=== PATIENT | male | born 1960 | race Caucasian/White ===

== ENCOUNTER → 2016-11-05 | Outpatient (CLI) | payer OTHER ==
[~2016-11-05] MED LIST: ADVAIR 250/501 DISK IH; ALPRAZOLAM0.25 M2 PO; AMOX TR-K CLV1 EAC4 PO; BACLOFEN10 MG PO; BENZONATATE200 MG PO; CETIRIZINE HCL10 M2 PO; CILOSTAZOL50 MG PO; CLOBETASOL PROP60 GM TP; DEXAMETHASONE4 MG PO; DOCUSATE SODIU100 MG PO; ENALAPRIL MALEAT5 MG PO; FENOFIBRATE54 M1 PO; FLONASE ALLERG9.9 ML BOTH NARES; FUROSEMIDE20 MG PO; HYDROMET PO; LYRICA100 MG PO; NICOTINE PATCH1 EAC2 TD; OXYCODONE-APAP1 EAC6 PO; OXYCODONE-APAP1 EACH PO; PANTOPRAZOLE SO40 MG PO; PENTOXIFYLLINE400 MG PO; PRAVACHOL10 MG PO; RELAFEN750 MG PO; TRAZODONE HCL50 MG PO; VENTOLIN HFA18 GM IH; WELLBUTRIN SR150 MG PO
== END | disposition home or self-care (01) ==
LOC: NUC 10:24
DX: R93.7 Abnormal findings on diagnostic imaging of other parts of musculoskeletal system (principal); Z96.641 Presence of right artificial hip joint
CPT/HCPCS: 78306; A9503

== ENCOUNTER → 2016-11-12 | Outpatient (CLI) | payer OTHER ==
[~2016-11-12] VITALS: Ht 167.6 cm; Wt 64.8 kg
[2016-11-12 10:43] LABS: MCH 26.7 PG (29.0-34.0); MEAN PLAT.VOLUME 8.5 uM^3 (9.0-12.4); PLATELET COUNT 223 K/uL (156-360); RBC DIS.WIDTH-CV 13.2 % (11.8-14.6); RBC DIS.WIDTH-SD 38.9 % (39-53); RED BLOOD COUNT 4.57 M/uL (4.00-5.50); WHITE BLOOD COUNT 6.6 K/uL (4.1-10.2)
[2016-11-12 10:56] LABS: INTER. NORMALIZED RATIO 1.3; PROTHROMBIN TIME 14.4 SEC (10.2-12.9)
[2016-11-12 10:59] LABS: PTT 30.5 SEC (25-37)
== END | disposition home or self-care (01) ==
LOC: AMB 10-31 14:30
PROVIDERS: Internal Medicine Pulmonary Disease
DX: C34.81 Malignant neoplasm of overlapping sites of right bronchus and lung (principal); J44.9 Chronic obstructive pulmonary disease, unspecified; F17.210 Nicotine dependence, cigarettes, uncomplicated; Z80.1 Family history of malignant neoplasm of trachea, bronchus and lung; Z77.090 Contact with and (suspected) exposure to asbestos; Z57.5 Occupational exposure to toxic agents in other industries; Z82.49 Family history of ischemic heart disease and other diseases of the circulatory system
CPT/HCPCS: 71010; 85027; 85610; 85730; 88108; 88173; 88305; 88341 TC; 88342 TC; J0171; J0461; J2175; J2250; J2550; J3010

== ENCOUNTER 2017-01-07 10:26 | Emergency (ER) | payer OTHER ==
[~2017-01-07] VITALS: Ht 167.6 cm; Wt 79.3 kg
[~2017-01-07 10:26] MED LIST changes: +DIGOXIN250 MCG PO; +DUONEB 2.5-0.5 M3 ML AEROSOL; +LEVAQUIN500 MG PO; +METOPROLOL TAR100 MG PO; +MS CONTIN,ORAMO15 M1 PO; +SYMBICORT60 INHALAT IH
[2017-01-07 11:49] LABS: EOSINOPHIL (%) 0 % (0-5); HEMATOCRIT 38.1 % (38.0-50.0); IMMATURE GRANULOCYTE (%) 0.9 % (0.0-0.7); IMMATURE GRANULOCYTE COUNT 0.1 K/uL; INSTRUMENT ABS NEUTROPHIL CT 9.6 K/uL; LYMPHOCYTE COUNT 0.4 K/uL (1.0-2.8); MCH 25.7 PG (29.0-34.0); MCHC 31.8 G/DL (30.0-36.0); MCV 80.9 FL (86-99); MEAN PLAT.VOLUME 9.1 uM^3 (9.0-12.4); MONOCYTE (%) 1.3 % (3-12); MONOCYTE COUNT 0.1 K/uL (0-0.8); NEUTROPHIL (%) 93.9 % (45-76); NEUTROPHIL COUNT 9.6 K/uL (1.8-6.4); PLATELET COUNT 234 K/uL (156-360); RBC DIS.WIDTH-CV 16.5 % (11.8-14.6); RBC DIS.WIDTH-SD 47.8 % (39-53); RED BLOOD COUNT 4.71 M/uL (4.00-5.50); WHITE BLOOD COUNT 10.2 K/uL (4.1-10.2)
[2017-01-07 12:05] LABS: CHLORIDE 100 mEq/L (99-109); POTASSIUM 4.6 mEq/L (3.7-5.4); SODIUM 136 mEq/L (136-147)
[2017-01-07 12:08] LABS: GLUCOSE 168 mg/dL (70-99)
[2017-01-07 12:09] LABS: ANION GAP 9 MEQ/L (2-14); TROP-I INTERPRETATION NEGATIVE; TROPONIN-I < 0.01 ng/mL (0.0-0.30)
[2017-01-07 12:10] LABS: TOTAL BILIRUBIN 0.6 mg/dL (0.0-1.0)
[2017-01-07 12:11] LABS: ALKALINE PHOSPHATASE 120 IU/L (3-129); GFR ESTIMATE (CALCULATED) > 59 mL/min/
[2017-01-07 12:12] LABS: UREA NITROGEN (BUN) 18 mg/dL (9-23)
[2017-01-07 13:17] VITALS: BP 142/74
== END 2017-01-07 13:19 | disposition home or self-care (01) ==
LOC: EME 10:26
PROVIDERS: Emergency Medicine
DX: T78.40XA Allergy, unspecified, initial encounter (principal); R06.03 Acute respiratory distress; Z85.118 Personal history of other malignant neoplasm of bronchus and lung; L40.9 Psoriasis, unspecified; I73.9 Peripheral vascular disease, unspecified; F41.9 Anxiety disorder, unspecified; E78.5 Hyperlipidemia, unspecified; F17.200 Nicotine dependence, unspecified, uncomplicated; Z88.5 Allergy status to narcotic agent; Z88.8 Allergy status to other drugs, medicaments and biological substances
CPT/HCPCS: 71010; 80053; 84484; 85025; 93005; 99281; 99285

== ENCOUNTER 2017-01-13 01:37 | Inpatient (IN) | payer OTHER ==
[~2017-01-13] VITALS: Ht 167.6 cm; Wt 76.5 kg
[~2017-01-13 01:37] MED LIST changes: -BENZONATATE200 MG PO; +LASIX40 MG PO; +TESSALON200 MG PO
[2017-01-13 02:12] LABS: HEMATOCRIT 35.7 % (38.0-50.0); MCH 26.4 PG (29.0-34.0); MCHC 32.8 G/DL (30.0-36.0); MCV 80.4 FL (86-99); PLATELET COUNT 219 K/uL (156-360); RBC DIS.WIDTH-CV 16.7 % (11.8-14.6); RBC DIS.WIDTH-SD 48.1 % (39-53); RED BLOOD COUNT 4.44 M/uL (4.00-5.50); WHITE BLOOD COUNT 13.2 K/uL (4.1-10.2)
[2017-01-13 02:22] LABS: INTER. NORMALIZED RATIO 1.4; PROTHROMBIN TIME 15.5 SEC (10.2-12.9)
[2017-01-13 02:24] LABS: CHLORIDE 94 mEq/L (99-109); SODIUM 132 mEq/L (136-147)
[2017-01-13 02:26] LABS: GLUCOSE 134 mg/dL (70-99)
[2017-01-13 02:27] LABS: ANION GAP 12 MEQ/L (2-14)
[2017-01-13 02:30] LABS: GFR ESTIMATE (CALCULATED) > 59 mL/min/; UREA NITROGEN (BUN) 15 mg/dL (9-23)
[2017-01-13 02:48] LABS: TROP-I INTERPRETATION NEGATIVE; TROPONIN-I < 0.01 ng/mL (0.0-0.30)
[2017-01-13 08:22] VITALS: BP 115/73
[2017-01-13 10:33] LABS: TROP-I INTERPRETATION NEGATIVE; TROPONIN-I < 0.01 ng/mL (0.0-0.30)
[2017-01-13 11:44] VITALS: BP 132/75
[2017-01-13 14:55] LABS: TROP-I INTERPRETATION NEGATIVE; TROPONIN-I 0.01 ng/mL (0.0-0.30)
[2017-01-13 15:02] VITALS: BP 119/67
[2017-01-13] MEDS ORDERED: KADIAN30 MG PO (18:33)
[2017-01-13] MEDS ORDERED: REGLAN5 MG PO (18:43)
[2017-01-13] MEDS ORDERED: BACLOFEN10 MG PO (18:43)
[2017-01-13 20:08] VITALS: BP 120/65
[2017-01-13 23:36] VITALS: BP 141/64
[2017-01-14] VITALS (7 sets, daily range): BP systolic 122–153; BP diastolic 65–96
[2017-01-14 07:03] LABS: EOSINOPHIL (%) 0 % (0-5); HEMATOCRIT 37.7 % (38.0-50.0); IMMATURE GRANULOCYTE (%) 1.5 % (0.0-0.7); IMMATURE GRANULOCYTE COUNT 0.1 K/uL; INSTRUMENT ABS NEUTROPHIL CT 6.9 K/uL; LYMPHOCYTE COUNT 0.4 K/uL (1.0-2.8); MCH 25.3 PG (29.0-34.0); MCHC 31.3 G/DL (30.0-36.0); MCV 80.7 FL (86-99); MEAN PLAT.VOLUME 8.7 uM^3 (9.0-12.4); MONOCYTE COUNT 0.2 K/uL (0-0.8); NEUTROPHIL (%) 91.5 % (45-76); NEUTROPHIL COUNT 6.9 K/uL (1.8-6.4); PLATELET COUNT 199 K/uL (156-360); RBC DIS.WIDTH-CV 16.6 % (11.8-14.6); RBC DIS.WIDTH-SD 48.8 % (39-53); RED BLOOD COUNT 4.67 M/uL (4.00-5.50); WHITE BLOOD COUNT 7.5 K/uL (4.1-10.2)
[2017-01-14 07:20] LABS: INTER. NORMALIZED RATIO 1.4; PROTHROMBIN TIME 15.8 SEC (10.2-12.9)
[2017-01-14 07:26] LABS: ALKALINE PHOSPHATASE 116 IU/L (3-129); ANION GAP 12 MEQ/L (2-14); CHLORIDE 99 MEQ/L (99-109); GFR ESTIMATE (CALCULATED) > 59 mL/min/; GLUCOSE 144 mg/dL (70-99); POTASSIUM 4.4 MEQ/L (3.7-5.4); SAMPLE HEMOLYSIS CHECK 0; SAMPLE ICTERIC CHECK 0; SAMPLE LIPEMIA CHECK 0; TOTAL BILIRUBIN 0.5 MG/DL (0.0-1.0); UREA NITROGEN (BUN) 14 mg/dL (9-23)
[2017-01-14 07:28] LABS: SODIUM 139 MEQ/L (136-147)
[2017-01-15] VITALS (7 sets, daily range): BP systolic 126–161; BP diastolic 73–93
[2017-01-15 06:05] LABS: EOSINOPHIL (%) 0.1 % (0-5); HEMATOCRIT 35.9 % (38.0-50.0); IMMATURE GRANULOCYTE (%) 1.1 % (0.0-0.7); IMMATURE GRANULOCYTE COUNT 0.1 K/uL; INSTRUMENT ABS NEUTROPHIL CT 10.3 K/uL; LYMPHOCYTE COUNT 0.5 K/uL (1.0-2.8); MCH 25.7 PG (29.0-34.0); MCV 80.1 FL (86-99); MEAN PLAT.VOLUME 8.8 uM^3 (9.0-12.4); MONOCYTE (%) 4.2 % (3-12); MONOCYTE COUNT 0.5 K/uL (0-0.8); NEUTROPHIL (%) 90.5 % (45-76); NEUTROPHIL COUNT 10.3 K/uL (1.8-6.4); PLATELET COUNT 228 K/uL (156-360); RBC DIS.WIDTH-CV 17.1 % (11.8-14.6); RBC DIS.WIDTH-SD 49.5 % (39-53); RED BLOOD COUNT 4.48 M/uL (4.00-5.50); WHITE BLOOD COUNT 11.3 K/uL (4.1-10.2)
[2017-01-15 06:28] LABS: ANION GAP 12 MEQ/L (2-14); CHLORIDE 100 MEQ/L (99-109); GFR ESTIMATE (CALCULATED) > 59 mL/min/; GLUCOSE 164 mg/dL (70-99); POTASSIUM 4.1 MEQ/L (3.7-5.4); SAMPLE HEMOLYSIS CHECK 0; SAMPLE ICTERIC CHECK 0; SAMPLE LIPEMIA CHECK 0; SODIUM 138 MEQ/L (136-147); UREA NITROGEN (BUN) 20 mg/dL (9-23)
[2017-01-16 05:06] VITALS: BP 137/69
[2017-01-16 07:49] VITALS: BP 155/88
[2017-01-16 11:36] VITALS: BP 151/90
[2017-01-16 15:32] VITALS: BP 148/72
[2017-01-16 19:49] VITALS: BP 166/72
[2017-01-17 03:56] VITALS: BP 129/70
[2017-01-17 07:55] VITALS: BP 138/77
[2017-01-17 09:52] LABS: HEMATOCRIT 36.4 % (38.0-50.0); MCH 25.5 PG (29.0-34.0); MCHC 31.6 G/DL (30.0-36.0); MCV 80.7 FL (86-99); MEAN PLAT.VOLUME 8.5 uM^3 (9.0-12.4); PLATELET COUNT 201 K/uL (156-360); RBC DIS.WIDTH-CV 17.4 % (11.8-14.6); RBC DIS.WIDTH-SD 51.2 % (39-53); RED BLOOD COUNT 4.51 M/uL (4.00-5.50)
[2017-01-17 10:14] LABS: ANION GAP 9 MEQ/L (2-14); CHLORIDE 101 MEQ/L (99-109); GFR ESTIMATE (CALCULATED) > 59 mL/min/; POTASSIUM 4.5 MEQ/L (3.7-5.4); SAMPLE HEMOLYSIS CHECK 0; SAMPLE ICTERIC CHECK 0; SAMPLE LIPEMIA CHECK 0; SODIUM 138 MEQ/L (136-147); UREA NITROGEN (BUN) 30 mg/dL (9-23)
[2017-01-17 10:15] LABS: GLUCOSE 112 mg/dL (70-99)
[2017-01-17 11:18] VITALS: BP 138/76
[2017-01-17 15:57] VITALS: BP 131/67
[2017-01-17 20:00] VITALS: BP 129/76
[2017-01-17 23:51] VITALS: BP 158/83
[2017-01-18 03:49] VITALS: BP 172/76
[2017-01-18 08:07] VITALS: BP 141/70
[2017-01-18 11:33] VITALS: BP 142/85
[2017-01-18 15:08] VITALS: BP 150/73
[2017-01-18 15:34] LABS: TYPE OF FLUID PLEURAL
[2017-01-18 16:12] LABS: BODY FLUID EOSINOPHILS 0 % (0-25); BODY FLUID RBC'S < 1000 /MM^3 (0-100); BODY FLUID WBC'S 59 /MM^3 (0-500); MONONUCLEAR WBC'S 86 %; POLYNUCLEAR WBC'S 14 % (0-25)
[2017-01-18 16:14] LABS: BODY FLUID LDH 79 IU/L
[2017-01-18 19:49] VITALS: BP 139/72
[2017-01-18 23:45] VITALS: BP 162/89
[2017-01-19 04:13] VITALS: BP 159/80
[2017-01-19 07:27] VITALS: BP 130/69
[2017-01-19 10:05] LABS: MCH 25.6 PG (29.0-34.0); MCHC 32.4 G/DL (30.0-36.0); MCV 79.2 FL (86-99); MEAN PLAT.VOLUME 8.6 uM^3 (9.0-12.4); PLATELET COUNT 229 K/uL (156-360); RBC DIS.WIDTH-SD 48.4 % (39-53); WHITE BLOOD COUNT 13.5 K/uL (4.1-10.2)
[2017-01-19 10:28] LABS: ANION GAP 11 MEQ/L (2-14); CHLORIDE 97 MEQ/L (99-109); GFR ESTIMATE (CALCULATED) > 59 mL/min/; GLUCOSE 122 mg/dL (70-99); POTASSIUM 4.3 MEQ/L (3.7-5.4); SAMPLE HEMOLYSIS CHECK 0; SAMPLE ICTERIC CHECK 0; SAMPLE LIPEMIA CHECK 0; SODIUM 135 MEQ/L (136-147); UREA NITROGEN (BUN) 33 mg/dL (9-23)
[2017-01-19 12:00] VITALS: BP 136/78
[2017-01-19 14:58] VITALS: BP 127/71
[2017-01-19 19:44] VITALS: BP 145/79
[2017-01-19 23:15] VITALS: BP 140/78
[2017-01-20 03:51] VITALS: BP 134/76
[2017-01-20 06:31] VITALS: BP 120/80
[2017-01-20 11:10] VITALS: BP 135/66
[2017-01-20] MEDS ORDERED: LOPRESSOR25 MG PO (13:28)
[2017-01-20] MEDS ORDERED: ASPIR-LOW81 MG PO (13:29)
[2017-01-20] MEDS ORDERED: CARDIZEM CD,CA240 MG PO (13:29)
[2017-01-20] MEDS ORDERED: MEDROL DOSEPAK4 MG PO (13:34)
[2017-01-23 07:01] LABS: BODY FLUID PH 8.2 (())
== END 2017-01-20 16:30 | disposition home health service (06) | DRG 194 ==
LOC: EME 01:37 → EDOF 06:07 → 5EAST 06:07 → 3EAST 06:07 → CANRESERV 06:12 → ENRESERV 06:12 → 3EAST 07:16 → ENRESERV 01-19 06:34 → 5EAST 01-19 12:22 → ENPENDDIS 01-20 → 5EAST 01-20 16:30
PROVIDERS: Emergency Medicine; Physician Assistant; Student in an Organized Health Care Education/Training Program
DX: J18.9 Pneumonia, unspecified organism (principal); C34.90 Malignant neoplasm of unspecified part of unspecified bronchus or lung; C34.81 Malignant neoplasm of overlapping sites of right bronchus and lung; C79.51 Secondary malignant neoplasm of bone; I48.91 Unspecified atrial fibrillation; I10 Essential (primary) hypertension; E78.5 Hyperlipidemia, unspecified; F41.9 Anxiety disorder, unspecified; J44.0 Chronic obstructive pulmonary disease with (acute) lower respiratory infection; J44.1 Chronic obstructive pulmonary disease with (acute) exacerbation; G89.4 Chronic pain syndrome; I87.1 Compression of vein; E87.1 Hypo-osmolality and hyponatremia; G89.3 Neoplasm related pain (acute) (chronic); F17.210 Nicotine dependence, cigarettes, uncomplicated; G47.33 Obstructive sleep apnea (adult) (pediatric); I48.92 Unspecified atrial flutter; I73.9 Peripheral vascular disease, unspecified; J39.8 Other specified diseases of upper respiratory tract; J90 Pleural effusion, not elsewhere classified; J98.11 Atelectasis; T38.0X5A Adverse effect of glucocorticoids and synthetic analogues, initial encounter; Y95 Nosocomial condition; Z79.1 Long term (current) use of non-steroidal anti-inflammatories (NSAID); Z79.51 Long term (current) use of inhaled steroids; Z79.899 Other long term (current) drug therapy; Z80.1 Family history of malignant neoplasm of trachea, bronchus and lung; Z82.49 Family history of ischemic heart disease and other diseases of the circulatory system; Z83.3 Family history of diabetes mellitus; Z85.118 Personal history of other malignant neoplasm of bronchus and lung; Z92.21 Personal history of antineoplastic chemotherapy; Z92.3 Personal history of irradiation; Z96.641 Presence of right artificial hip joint
CPT/HCPCS: 31720; 71010; 71260; 76942; 80048; 80053; 80202; 82945; 83605; 83615 91; 83986 90; 84157; 84484; 85025; 85027; 85610; 87040; 87070; 87075; 87116; 87205; 87206; 88108; 89051; 93005; 94640; 94640 76; 94660; 94667; 94668; 94799; 99202; 99281; 99285; J0692; J1100; J1650; J2405; J2920; J2930; J3370; J7030; J7050; J7512; J9045; J9201

== ENCOUNTER 2017-01-29 18:09 | Inpatient (IN) | payer OTHER ==
[~2017-01-29] VITALS: Ht 167.6 cm; Wt 86.3 kg
[~2017-01-29 18:09] MED LIST changes: +ASPIR-LOW81 MG PO; +CARDIZEM CD,CA240 MG PO; +KADIAN30 MG PO; +LOPRESSOR25 MG PO; +MEDROL DOSEPAK4 MG PO; +REGLAN5 MG PO
[2017-01-29 19:03] LABS: HEMATOCRIT 31.5 % (38.0-50.0); IMM.PLATELET FRACTION 3.9 (1-7); MCH 26.5 PG (29.0-34.0); MCHC 33.7 G/DL (30.0-36.0); MCV 78.8 FL (86-99); RBC DIS.WIDTH-CV 15.9 % (11.8-14.6); WHITE BLOOD COUNT 4.8 K/uL (4.1-10.2)
[2017-01-29 19:09] LABS: INTER. NORMALIZED RATIO 1.3
[2017-01-29 19:12] LABS: PTT 25.8 SEC (25-37)
[2017-01-29 19:15] LABS: CHLORIDE 92 mEq/L (99-109); POTASSIUM 3.4 mEq/L (3.7-5.4); SODIUM 138 mEq/L (136-147)
[2017-01-29 19:16] LABS: GLUCOSE 133 mg/dL (70-99)
[2017-01-29 19:18] LABS: ANION GAP 15 MEQ/L (2-14)
[2017-01-29 19:20] LABS: GFR ESTIMATE (CALCULATED) > 59 mL/min/
[2017-01-29 19:21] LABS: UREA NITROGEN (BUN) 35 mg/dL (9-23)
[2017-01-29 19:26] LABS: TROP-I INTERPRETATION NEGATIVE; TROPONIN-I 0.02 ng/mL (0.0-0.30)
[2017-01-29 19:41] LABS: PLAT.SUFFICIENCY DECREASED
[2017-01-29 20:15] LABS: PLATELET COUNT 46 K/uL (156-360)
[2017-01-29] MEDS ORDERED: COLACE100 MG PO (22:01)
[2017-01-29] MEDS ORDERED: XANAX0.5 MG PO (22:02)
[2017-01-29] MEDS ORDERED: ENDOCET 10-3251 EACH PO (22:04)
[2017-01-29] MEDS ORDERED: LOPRESSOR25 MG PO (22:14)
[2017-01-29] MEDS ORDERED: DILTIAZEM 24HR240 MG PO (22:17)
[2017-01-29] MEDS ORDERED: LOW DOSE ASPIRI81 M1 PO (22:18)
[2017-01-29] MEDS ORDERED: MUCINEX600 MG PO (22:19)
[2017-01-29] MEDS ORDERED: NYSTATIN100000 UN1 PO (22:21)
[2017-01-29 23:09] LABS: BASE EXCESS 10.7 mEq/L (-3 to +3); BICARBONATE 35.1 mEq/L (22-26); CARBOXY HGB 1.8 % (0-5); METHEMOGLOBIN 0.8 % (0-1.5); PCO2 45 mm Hg (35-45); PO2 60 mm Hg (80-100)
[2017-01-29 23:10] LABS: COMMENTS - BLOOD GASES C+; DEVICE NCH; O2 FLOW 8 L/MIN; SITE RR; TOTAL RESP RATE 15 resp/min
[2017-01-30 00:29] LABS: TOTAL BILIRUBIN 1.3 mg/dL (0.0-1.0)
[2017-01-30 00:30] LABS: ALKALINE PHOSPHATASE 130 IU/L (3-129)
[2017-01-30 05:48] LABS: CHLORIDE 93 mEq/L (99-109); SODIUM 138 mEq/L (136-147)
[2017-01-30 05:50] LABS: GLUCOSE 146 mg/dL (70-99)
[2017-01-30 05:51] LABS: ANION GAP 14 MEQ/L (2-14)
[2017-01-30 05:52] LABS: POTASSIUM 4.1 mEq/L (3.7-5.4)
[2017-01-30 05:54] LABS: GFR ESTIMATE (CALCULATED) > 59 mL/min/
[2017-01-30 05:55] LABS: HEMATOCRIT 30.8 % (38.0-50.0); MCH 25.3 PG (29.0-34.0); MCHC 32.1 G/DL (30.0-36.0); MCV 78.8 FL (86-99); RBC DIS.WIDTH-CV 15.9 % (11.8-14.6); RED BLOOD COUNT 3.91 M/uL (4.00-5.50); UREA NITROGEN (BUN) 33 mg/dL (9-23); WHITE BLOOD COUNT 4.3 K/uL (4.1-10.2)
[2017-01-30 06:28] LABS: IMM.PLATELET FRACTION 4.2 (1-7); MEAN PLAT.VOLUME 9.8 uM^3 (9.0-12.4); PLAT.SUFFICIENCY VERY DECREASED; PLATELET COUNT 47 K/uL (156-360)
[2017-01-30 12:49] LABS: TROP-I INTERPRETATION NEGATIVE
[2017-01-30 13:42] VITALS: BP 125/78
[2017-01-30 15:00] VITALS: BP 120/70
[2017-01-30 19:50] VITALS: BP 115/63
[2017-01-31 00:10] VITALS: BP 102/54
[2017-01-31 04:08] VITALS: BP 124/67
[2017-01-31 07:03] VITALS: BP 152/85
[2017-01-31 12:58] VITALS: BP 145/73
[2017-01-31] MEDS ORDERED: AMOX TR-K CLV1 EAC4 PO (14:32)
[2017-01-31] MEDS ORDERED: AZITHROMYCIN500 M1 PO (14:32)
[2017-01-31] MEDS ORDERED: ALBUTEROL2.5 MG/0.5 AEROSOL ×2 (14:33)
== END 2017-01-31 15:07 | DRG 189 ==
LOC: EME 18:09 → 4EAST 22:50 → EDOF 22:50 → ENRESERV 22:51 → 4EAST 01-30 13:06
PROVIDERS: Emergency Medicine; Hospitalist
DX: J96.21 Acute and chronic respiratory failure with hypoxia (principal); J18.9 Pneumonia, unspecified organism; J44.1 Chronic obstructive pulmonary disease with (acute) exacerbation; I48.91 Unspecified atrial fibrillation; Z51.5 Encounter for palliative care; Z99.81 Dependence on supplemental oxygen; F17.210 Nicotine dependence, cigarettes, uncomplicated; C34.90 Malignant neoplasm of unspecified part of unspecified bronchus or lung; C79.51 Secondary malignant neoplasm of bone; E78.5 Hyperlipidemia, unspecified; J98.11 Atelectasis; S31.829A Unspecified open wound of left buttock, initial encounter; S31.819A Unspecified open wound of right buttock, initial encounter; I87.1 Compression of vein; Z66 Do not resuscitate; D69.59 Other secondary thrombocytopenia; T45.1X5A Adverse effect of antineoplastic and immunosuppressive drugs, initial encounter; G89.4 Chronic pain syndrome
CPT/HCPCS: 36600; 71010; 76937; 80048; 80076; 81003; 82803; 83880; 84484; 85027; 85049; 85610; 85730; 87040; 93005; 93970; 93971; 94640; 94640 76; 94667; 94799; 99202; 99281; 99285; C1894; J0295; J1940; J2405; J7050; J7512